=== PATIENT | female | born 1990 | race Caucasian/White ===

== ENCOUNTER 2019-01-24 23:01 | Emergency (ER) | payer BC ==
[~2019-01-24] VITALS: Ht 162.6 cm; Wt 77.3 kg
[2019-01-24 23:52] LABS: URINE HCG NEGATIVE (NEG)
[2019-01-25 01:14] VITALS: BP 133/86
== END 2019-01-25 01:10 | disposition home or self-care (01) ==
LOC: ER 23:02
DX: T74.21XA Adult sexual abuse, confirmed, initial encounter (principal); Z88.6 Allergy status to analgesic agent
CPT/HCPCS: 81025; 99284